=== PATIENT | male | born 1975 | race African-American/Black ===

== ENCOUNTER 2020-09-24 10:15 | Emergency (ER) | payer BC ==
[~2020-09-24] VITALS: Ht 165.1 cm; Wt 91.0 kg
[2020-09-24 10:21] VITALS: BP 135/85
== END 2020-09-24 10:43 | disposition home or self-care (01) ==
LOC: ER 10:15
DX: Z48.02 Encounter for removal of sutures (principal); Z98.890 Other specified postprocedural states
CPT/HCPCS: 99281